=== PATIENT | male | born 2000 | race Caucasian/White ===

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

== ENCOUNTER 2023-04-03 15:34 | Emergency (ER) | payer BC ==
[~2023-04-03] VITALS: Ht 175.3 cm; Wt 95.5 kg
[2023-04-03] MEDS ORDERED: Acetaminophen 500 MG TAB PO ONE (17:45)
[2023-04-03] MEDS ORDERED: Ibuprofen 400 MG TAB PO ONE (17:45)
[2023-04-03] MEDS ORDERED: Ibuprofen 600 MG TAB PO ONE (18:45)
[2023-04-03 19:32] VITALS: BP 118/79; PULSE 95; TEMP 100.1
== END 2023-04-03 19:38 | disposition home or self-care (01) ==
LOC: COL.ER 15:34
DX: J10.1 Influenza due to other identified influenza virus with other respiratory manifestations (principal)